=== PATIENT | female | born 1970 | race Two or more races ===

== ENCOUNTER 2022-11-04 00:27 | Emergency (ER) | payer MEDICAID, OTHER ==
[~2022-11-04] VITALS: Ht 165.1 cm; Wt 71.2 kg
[2022-11-04] MEDS ORDERED: ETOMIDATE 2 MG/ML VIAL IV ONE ×2 (00:30→01:00)
[2022-11-04] MEDS ORDERED: ONDANSETRON HCL/PF 4 MG/2 ML VIAL ONE ×2 (00:34→03:56)
--- NOTE | 2022-11-04 00:34 | NUR ---
EMESIS NOTED. ADMINISTERED ZOFRAN 4M IVP VERBAL ORDER BY DR IRVING VAZQUEZ
--- NOTE | 2022-11-04 00:39 | NUR ---
Behzad mohan in ED - 11/04/22 at 0056 by JIE *INTUBATION* DR KENNEDY, RT, RN, EMT AT PT'S BEDSIDE 0035 ADMINISTERED ETOMIDATE 60 IVP 0035 [address] IVP DR IRVING VAZQUEZ 23 ETT 25 AT [facility]
--- NOTE | 2022-11-04 00:39 | NUR ---
*INTUBATION* DR KENNEDY, RT, RN, EMT AT PT'S BEDSIDE 0035 ADMINISTERED ETOMIDATE 60 IVP 0035 [address]MIN[address] ROCONIUM 60MG IVP DR VILLATORO DO ETT SIZE 7; 25 AT THE LIP
--- NOTE | 2022-11-04 00:40 | NUR ---
RT Pt orally intubated with 7.0 ETT secured at 23cm at the lip line. Color changed of CO2 detector noted. Equal breath sounds and adequate chest rise noted. [facility] ordered vent settings: AC mode, rate 18, VT 450, FIO2 100%, PEEP +5. MEDICAL DATA ENTRY CLERK done. Alarms set and audible. Ambubag at bedside. Will cont to monitor.
--- NOTE | 2022-11-04 00:43 | NUR ---
Behzad mohan in [facility] - 11/04/22 at 0047 by JIE RECOOPERER AT PT'S BEDSIDE
--- NOTE | 2022-11-04 00:47 | NUR ---
NGT INSERTED TO Renetta CARRION Addendum: 11/04/22 at 0055 by DELONSIP NGT INSERTED TO Renetta CARRION 60CM Addendum: 11/04/22 at 0152 by DELONSIP [id number] INSERTED TO Renetta CARRION 60CM
--- NOTE | 2022-11-04 00:50 | NUR ---
VENT SETTINGS: AC 18 TV 450 FIO2 100%
--- NOTE | 2022-11-04 00:50 | NUR ---
L AC #20G S/L BLOOD COLLECTED AND SENT TO LAB
--- NOTE | 2022-11-04 00:51 | NUR ---
TRANSFER TABLE OPERATOR AT PT'S BEDSIDE
--- NOTE | 2022-11-04 00:54 | NUR ---
COVID ANTIGEN AND MRSA SWAB COLLECTED AND SENT TO LAB
--- NOTE | 2022-11-04 00:57 | NUR ---
EMT AT PT'S BEDSIDE FOR EKG
[2022-11-04] MEDS ORDERED: CEFEPIME 1 GM VIAL ONE (00:58)
[2022-11-04] MEDS ORDERED: ONDANSETRON HCL/PF 4 MG/2 ML VIAL IVP ONE (01:00)
[2022-11-04] MEDS ORDERED: ROCURONIUM BROMIDE 100 MG/10 ML VIAL IV ONE (01:00)
[2022-11-04] MEDS ORDERED: CEFEPIME 1 GM in IV D5W 50 ML IV ONE (01:00)
--- NOTE | 2022-11-04 01:05 | NUR ---
FC 16FR INSERTED
[2022-11-04 01:06] LABS: BASOPHILS # (AUTO) 0.1 K/uL (0.0-0.2); BASOPHILS % (AUTO) 0.4 % (0.0-2.0); EOSINOPHILS % (AUTO) 4.7 % (0.0-6.0); HEMATOCRIT 43 % (33-45); HEMOGLOBIN 13.6 g/dL (11.5-14.8); LYMPHOCYTES # (AUTO) 9.1 K/uL (0.8-4.8); LYMPHOCYTES % (AUTO) 49.2 % (20.0-44.0); MEAN CORPUSCULAR HGB CONC 32 g/dl (31.0-36.0); MEAN CORPUSCULAR VOLUME 88 fL (82-100); MONOCYTES # (AUTO) 1.2 K/uL (0.1-1.30); MONOCYTES % (AUTO) 6.5 % (2.0-12.0); NEUTROPHILS # (AUTO) 7.2 K/uL (1.8-8.9); NEUTROPHILS % (AUTO) 39.2 % (43.0-81.0); PLATELET COUNT (AUTO) 311 K/uL (150-450); RED BLOOD CELL COUNT(AUTO) 4.84 MIL/uL (4.0-5.2); WHITE BLOOD COUNT (AUTO) 18.4 K/uL (4.3-11.0)
--- NOTE | 2022-11-04 01:13 | NUR ---
URINE COLLECTED AND SENT TO LAB
[2022-11-04 01:32] LABS: CALCIUM, SERUM 8.3 mg/dL (8.5-10.1); CARBON DIOXIDE 28 mmol/L (21-32); CHLORIDE 104 mmol/L (98-107); CREATININE 1.1 mg/dL (0.6-1.3); GLUCOSE 232 mg/dL (74-106); POTASSIUM 3.3 mmol/L (3.5-5.1); SODIUM SERUM 141 mmol/L (136-145); UREA NITROGEN, BLOOD 24 mg/dL (7-18)
[2022-11-04] MEDS ORDERED: CT SWABBABLE VALVE TRANS SET 1 EA INFUS.SET MC ONE (01:33)
[2022-11-04] MEDS ORDERED: IOHEXOL-350 100 ML VIAL IV ONE (01:33)
[2022-11-04] MEDS ORDERED: IV NS 0.9% 250 ML IV ONE (01:34)
[2022-11-04 01:43] LABS: ALANINE AMINOTRANSFERASE 43 U/L (12-78); ALBUMIN 3.9 g/dL (3.4-5.0); ALKALINE PHOSPHATASE 135 U/L (46-116); ASPARTATE AMINOTRANSFERASE 46 U/L (15-37); BILIRUBIN,DIRECT 0.1 mg/dL (0.0-0.2); BILIRUBIN,TOTAL 0.3 mg/dL (0.2-1.0)
--- NOTE | 2022-11-04 01:45 | NUR ---
NON TPA NEURO CHECK STARTED
--- NOTE | 2022-11-04 01:45 | NUR ---
HYDRALAZINE 10MG GIVEN IV PUSH
--- NOTE | 2022-11-04 01:46 | NUR ---
BACK FROM CT
[2022-11-04] MEDS ORDERED: hydrALAZINE HCL IV 20 MG VIAL ONE (01:49)
--- NOTE | 2022-11-04 01:55 | NUR ---
DR VILLATORO DO ON PHONE CALL WITH DR HERNANDEZ RADIOLOGIST
[2022-11-04] MEDS ORDERED: hydrALAZINE HCL IV 20 MG VIAL IV ONE (02:00)
--- NOTE | 2022-11-04 02:02 | NUR ---
SENT CT HEAD IMAGES TO DR LEON, NEURO SURGEON
[2022-11-04 02:11] LABS: BILIRUBIN,URINE NEGATIVE (NEGATIVE); COLOR,URINE OTHER (YELLOW); LEUKOCYTE ESTERASE ,URINE NEGATIVE (NEGATIVE); NITRITE, URINE NEGATIVE (NEGATIVE); PROTEIN,URINE 2+ mg/dl (NEGATIVE); UGLUCOSE 1+ mg/dL (NEGATIVE); UROBILINOGEN,URINE 0.2 EU/dL (0.2)
--- NOTE | 2022-11-04 02:11 | NUR ---
RT Per MD order ETT retracted 2.5cm from 23 at the lip line to 20.5 at the lip line.
[2022-11-04 02:18] LABS: BACTERIA,URINE Rare /HPF (None Seen); SQUAMOUS EPITHELIAL CELL,UR Few /HPF (None Seen); WBC,URINE 0-2 /HPF (0-3)
--- NOTE | 2022-11-04 02:19 | NUR ---
DAUGHTER AT THE BED SIDE
--- NOTE | 2022-11-04 02:20 | NUR ---
LEFT A MESSAGE FOR DR MANZANARES, AWAITING FOR HIS CALL BACK
--- NOTE | 2022-11-04 02:25 | NUR ---
FAMILY AT BEDSIDE
--- NOTE | 2022-11-04 02:28 | NUR ---
CALLED [facility] AT [phone] SPOKE TO JULY, AND FAXED CLINICALS TO [phone]
--- NOTE | 2022-11-04 02:36 | NUR ---
RT AT BEDSIDE FOR ABG
--- NOTE | 2022-11-04 02:36 | NUR ---
DR VILLATORO AT BEDSIDE WITH DAUGHTER
[2022-11-04 02:44] LABS: ABG PCO2 38.8 mmHg (35.0-45.0); ABG PH 7.385 (7.350-7.450); ABG PO2 367.5 mmHg (75.0-100.0); COHb 0.3 % (0.5-1.5); MetHb 0.3 % (0.0-1.5); O2Hb 98.6 % (94.0-97.0); SITE, ABG Left Radial
--- NOTE | 2022-11-04 02:45 | NUR ---
RT FIO2 titrate from 100% to 50% post ABG results. Will continue to monitor.
--- NOTE | 2022-11-04 02:48 | NUR ---
VENT SETTING ADJUSTED: AC MODE, TV 450, RATE 18, PEEP 5
--- NOTE | 2022-11-04 02:56 | NUR ---
PT ACCEPTED BY DR MORGAN MCDOWELL WILL CALL BACK WITH ETA WITH [facility] ETA
--- NOTE | 2022-11-04 03:10 | NUR ---
[facility]
--- NOTE | 2022-11-04 03:16 | NUR ---
[facility] ETA 30 MINUTES CALL FOR REPORT [phone] ICU ROOM [phone]
--- NOTE | 2022-11-04 03:28 | NUR ---
REPORT GIVEN TO NERI HEARING HEALTH TECHNICIAN FROM [facility]
[2022-11-04] MEDS ORDERED: PROPOFOL 100 ML IV PRN (03:30)
[2022-11-04] MEDS ORDERED: PROPOFOL 100 ML ONE (03:37)
--- NOTE | 2022-11-04 03:38 | NUR ---
REPORT GIVEN TO [facility] RN BY MICHELL CONNELLY. THEY ARE REQUESTING IF WE CAN PROVIDE PROPOFOL FOR THEM DURING TRANSPORT IN CASES PT BECAME COMBATIVE ALONG THE WAY. DR VILLATORO MADE AWARE. PROPOFOL MEDICATION WITHDRAWN FROM [facility]
--- NOTE | 2022-11-04 03:43 | NUR ---
CCT TEAM FROM [facility] AT BED SIDE TO FUR SEWER THE PT
--- NOTE | 2022-11-04 04:07 | NUR ---
PATIENT BEING PICKED UP BY [facility] TEAM WITH [facility]. TRANSFERRED WITH [facility] ST[facility]. STILL WITH ET TUBE ATTACHED TO AMBUBAGGING AT 15LPM.
--- NOTE | 2022-11-04 04:10 | NUR ---
PROPOFOL ENDORSED TO MICHELL MCDOWELL OF [facility]
[2022-11-04 04:12] VITALS: BP 132/72
--- NOTE | 2022-11-04 04:14 | NUR ---
UPDATE GIVEN TO LANNY ULLOA
[2022-11-04] MEDS ORDERED: ONDANSETRON HCL/PF 4 MG/2 ML VIAL IV ONE (04:30)
[2022-11-04 07:52] LABS: BAND % (MANUAL) 2 % (0.0-5.0); EOSINOPHILS % (MANUAL) 4 % (0-4); LYMPHOCYTES % (MANUAL) 48 % (16-48); MONOCYTES % (MANUAL) 5 % (0-11.0); NEUTROPHILS % (MANUAL) 39 (42-76); REACTIVE LYMPHOCYTES 2 % (0-0)
== END 2022-11-04 04:14 ==
LOC: ER 00:29
DX: J96.00 Acute respiratory failure, unspecified whether with hypoxia or hypercapnia (principal); J69.0 Pneumonitis due to inhalation of food and vomit; I61.3 Nontraumatic intracerebral hemorrhage in brain stem; R40.4 Transient alteration of awareness; I16.1 Hypertensive emergency; J45.909 Unspecified asthma, uncomplicated; I10 Essential (primary) hypertension; Z20.822 Contact with and (suspected) exposure to COVID-19
CPT/HCPCS: 99291; 99292; 96365; 31500; 51701; 96375; 93005; 82803; 71045; 96376; 70450; 70498; 70496; 84145; 85025; 80048; 87040 ×2; 87086; 83605; 80076; 85007; 81001; 36415; 84484; 85730; 87081; 36600 ×2; 94799; 31720; 99082; 94002; 87426; J0360; J2405 ×2; J7060 ×2; J7050; J3490 ×2; A4223; J0692; Q9967; C9803